=== PATIENT | male | born 1940 | race Caucasian/White ===

== ENCOUNTER → 2019-08-07 14:16 | Outpatient (CLI) | payer MEDICARE, OTHER, SELFPAY ==
--- NOTE | 2019-08-07 | DI.MRI.S_ITS ---
PROCEDURE: MR HEAD/BRAIN WO/W CON INDICATIONS: Other frontotemporal dementia TECHNIQUE: Noncontrast axial T1 spin echo, axial T2 fast spin echo, sagittal and axial FLAIR, coronal T2 fast spin echo, axial gradient echo, axial diffusion and ADC through the brain. After the administration of contrast, axial and coronal T1 spin echo with fat saturation through the brain. COMPARISON: [facility], MR, BRAIN WITHOUT CONTRAST, 09/27/2014, 12:32. FINDINGS: Image quality: Excellent. CSF spaces: Basal cisterns are patent. No extra-axial fluid collections. Ventricles are prominent. Brain: No midline shift. No intracranial bleeds or masses. No abnormal intracranial enhancement. There is cerebral volume loss for age. There is periventricular white matter chronic small vessel ischemic change. The brainstem appears normal. Diffusion-weighted images demonstrate no acute ischemic insults. No chronic ischemic insults. Normal intravascular flow voids are present. Old right frontal ischemia as noted. If There is prominent bifrontal atrophy slightly progressive compared to prior exam. There is mild temporal lobe atrophy present. Skull and face: Calvarial marrow is normal in signal. Orbits appear normal. Sinuses: Sinuses demonstrate a partially visualized mucous retention cyst versus polyp in the right maxillary sinus. IMPRESSION: 1. Unchanged appearance of ventricular prominence in relation general sulcal atrophy. Old as could represent a more central atrophy pattern, normal pressure hydrocephalus cannot be definitively excluded. 2. Prominent frontal and mild temporal lobe atrophy appearing more prominent when compared to overall cerebral atrophy pattern. Appearance could be related to frontotemporal lobe degenerative disorders, which includes Pick's disease. Recommend clinical correlation to patient's symptoms. Dictated by: Elva Moore M.D. on 08/07/2019 at 15:39 Approved by: Elva Moore M.D. on 08/07/2019 at 15:49
[2019-08-07 16:36] LABS: Alanine Aminotransferase 21 IU/L (21-72); Albumin 4.3 g/dL (3.5-5.0); Albumin Globulin Ratio 1.2 (1.0-2.8); Alkaline Phosphatase 83 U/L (38-126); Aspartate Aminotransferase 26 IU/L (17-59); Bilirubin Unconjugated 0.7 mg/dL (0.0-1.1); Globulin 3.6 g/dL (1.7-4.1); Total Protein 7.9 g/dL (6.3-8.2)
[2019-08-07 16:37] LABS: HEMOLYSIS 71 (0-50)
== END ==
PROVIDERS: Family Provider Internal Medicine; PCP Internal Medicine; Visit Provider Specialist
DX: G31.09 Other frontotemporal neurocognitive disorder (principal); F02.80 Dementia in other diseases classified elsewhere, unspecified severity, without behavioral disturbance, psychotic disturbance, mood disturbance, and anxiety; R26.81 Unsteadiness on feet
CPT/HCPCS: 36415; 70553; 80076; A9579